=== PATIENT | male | born 1990 | race Caucasian/White ===

== ENCOUNTER 2024-06-10 23:35 | Emergency (ER) | payer OTHER, SELFPAY ==
[2024-06-10 23:37] VITALS: BP 124/89
--- NOTE | 2024-06-10 23:56 | ED.GENMED ---
History of Present Illness
General
Chief Complaint: Weakness
Source: patient
Exam Limitations: none
Time Seen by Provider: 06/10/24 23:44
History of Present Illness
History of Present Illness:
This is a 33 year old male that comes in with c/o vomiting blood. States that he vomited blood last night and then during the day he was fine. Then tonight he started vomiting and he would get sweaty and then cold and then hot. State that the third
time he vomited there was blood. Told that the patient did vomit in Triage and there was not blood. States that he had chills, chest pain, abd sharp pain, nausea, vomiting, diarrhea, mild headache and waves of dizziness. Denies any fever, SOB,
urinary burning.
Past History
Past History
ED Past Medical History: Asthma, Psychiatric (Anxiety, OCD, Autism, Depression, Panic disorder) and Other (Anal fissure, esophageal ulcer, Transverse myelitis 01/2023, Chest pain, Hemorrhoids, Esophageal ulcers. MS, Lyme disease)
ED Past Surgical History: None
Social History
Tobacco: Former smoker
Alcohol: None
Drug: Marijuana
Personal: Single
Living: with family
Family History
Family History: Other (No significant)
Review of Systems
Review of Systems
All Other Systems: ROS reviewed and negative except as documented in HPI and ROS
Constitutional: Reports chills and other (Sweats and then hot and cold); Denies fever
EENT: Reports no symptoms
Respiratory: Reports no symptoms; Denies cough or trouble breathing
Cardiac: Reports chest pain
ABD/GI: Reports abdominal pain (sharp), nausea, vomiting and diarrhea
: Reports no symptoms; Denies dysuria, frequency or urgency
Musculoskeletal: Reports no symptoms
Skin: Reports no symptoms
Neurological: Reports dizzy (Waves) and headache (Mild)
Psychiatric: Reports no symptoms
Phy Exam
General Physical Exam
General Presentation: no apparent distress
General age: appears stated age
General Skin: warm and dry
General Habitus: normal
General Mental: alert
General Hydration: appears well hydrated
ENT Exam
ENT Exam: TM's normal, pharynx normal and neck supple
Eye Exam
Eye Exam: EOMI
Cardiovascular Exam
Cardiovascular Exam: regular rate/rhythm, no edema, no murmur and normal peripheral pulses
Pulmonary Exam
Pulmonary Exam: lungs clear, no respiratory distress, no rales, chest non tender, no crackles, no rhonchi, no wheezing and no cough
Gastrointestinal Exam
Gastrointestinal Exam: normal bowel sounds, soft, no organomegaly, no pulsatile mass, non distended and tender (Epigastric area with palpation)
Musculoskeletal Exam
Musculoskeletal Exam: full ROM and no edema
Skin Exam
Skin Exam: normal color, warm/dry, no rash and no petechia
Psychiatric Exam
Psychiatric Exam: normal mood/affect
Course
Orders/Labs/Results
Orders:
Orders
06/10/24 23:56
Complete Blood Count/With Diff Urgent
Comprehensive Metabolic Panel Urgent
0.9% Sodium Chloride 1000 ml [Nss] 1,000 ml IV BOLUS
Ondansetron Injectable [Zofran] 4 mg IV NOW STA
Pantoprazole [Protonix IV] 40 mg IV NOW STA
06/10/24 23:58
Electrocardiogram (*1) Urgent
Reason for Study: Chest Pain
EKG- Treatment ONCE
Troponin I Urgent
06/11/24 00:52
Sucralfate Suspension [Carafate Suspension] 1 gm PO NOW STA
Abnormal Lab Results
06/11/24
00:11
WBC 17.6 H 10^3/uL
(4.8-10.8)
Abs Immat Gran (auto) 0.3 H 10^3/uL
(0-0.05)
Absolute Neuts (auto) 14.3 H 10^3/uL
(1.4-6.5)
Absolute Monos (auto) 1.4 H 10^3/uL
(0.1-0.6)
Immature Gran % 1.8 H %
(0-0.5)
Neutrophils % 81.2 H %
(42.2-75.2)
Lymphocytes % 7.1 L %
(20.5-51.1)
Glucose 122 H mg/dl
(70-99)
Albumin 5.1 H g/dl
(3.5-5.0)
06/11/24 00:11
06/11/24 00:11
Leukocytosis, Hyperglycemia. Albumin very slightly elevated troponin <0.012
Vital Signs
Initial and Last Documented VS:
Initial Vital Signs
Temp Pulse Resp BP Pulse Ox
99.0 F 83 20 124/89 99
06/10/24 23:37 06/10/24 23:37 06/10/24 23:37 06/10/24 23:37 06/10/24 23:37
Last Documented Vital Signs
Temp Pulse Resp BP Pulse Ox
99.0 F 71 20 110/61 100
06/10/24 23:37 06/11/24 01:15 06/11/24 00:15 06/11/24 01:00 06/11/24 01:15
MDM/Problems Addressed
Differential Diagnosis Includes:
Viral GI syndrome, Bleeding esophageal ulcers
MDM/Problems Addressed:
This is a 33 year old male that comes in with c/o vomiting and the third time there was blood. States that he was sweaty, hot and then cold.
Will check labs, give IV fluids, Protonix and recheck.
back into see patient. Patient has not had any further vomiting. states that he still has some burning in his esophagus. Offered patient admission but he would rather go home with the prescriptions. Patient is taking Protonix 40mg BID. Will add
Carafate QID and will give patient a prescription for Zofran. Patient states that he is scheduled for an endoscopy on the 24 of June. Patient to return with any concerns.
Chronic conditions affecting care:
Esophageal ulcers
Acute Exacerbation and/or Progression of Chronic Illness:
NA
*Pulse Oximetry
Patient hypoxic: no
*EKG
Interpreted by ED Provider?: Yes
Heart Rate: 75
Rate: normal
Rhythm: sinus
[place]: right axis deviation
Interval: normal interval
QRS Pattern: normal QRS
Ischemia: no ischemia
*Associate Counsel Interpretation
Rate: Associate Counsel- N/A
*Critical Care Note
Total Time (30-74mins, 75-104mins- exclusive of procedures): Not Applicable
ED Attending Note
-
Portions of this chart may have been created with voice recognition software.� Occasional wrong word or��sound alike� substitutions may have occurred due to the inherent limitations of voice recognition software.
Discharge Plan
Departure
Patient Disposition: Home (Routine Discharge)
Date of Disposition: 06/11/24
Time of Disposition: 01:44
Patient with high blood pressure during this ER visit?: No
Condition: Good
Covid-19: Not Applicable
Discharge Problem:
Nausea, vomiting and diarrhea
Instructions: Nausea and vomiting in adults, Acute Diarrhea
Prescriptions:
New
sucralfate [Carafate] 1 gram tablet
1 g PO ACHS Qty: 40 0RF
Rx Instructions:
30min-1hour before meals and HS. Dissolve 2tsp water and drink.
ondansetron 4 mg tablet,disintegrating
4 mg PO Q8H PRN (Reason: nausea and vomiting) Qty: 10 0RF
No Action
doxycycline hyclate 100 mg Capsule
100 mg PO BID
ergocalciferol (vitamin D2) 1,250 mcg (50,000 unit) Capsule
1,250 mcg PO MO@0800 Qty: 8 0RF
lorazepam 1 mg Tablet
1 mg PO DAILYPRN PRN (Reason: anxiety) Qty: 7 0RF
ferrous sulfate [FeroSul] 325 mg (65 mg iron) Tablet
325 mg PO HS Qty: 30 0RF
gabapentin 300 mg Capsule
600 mg PO TID Qty: 60 0RF
polyethylene glycol 3350 [HealthyLax] 17 gram Powder In Packet
17 g PO DAILY Qty: 30 0RF
nicotine 14 mg/24 hr Patch 24 Hour
14 mg transdermal DAILY Qty: 28 0RF
famotidine 20 mg Tablet
20 mg PO DAILY Qty: 30 0RF
sennosides [Senna Laxative] 8.6 mg Tablet
8.6 mg PO BID Qty: 30 0RF
Referrals:
UNKNOWN - PT DOES,NOT KNOW [Family Provider] -
Activity Restrictions/Additional Instructions:
As discussed, your blood work shows that your White blood cell count is elevated. This may be due to all the vomiting. Your Hgb is normal at 16.1. Your ECG is normal along with your Troponin. This is most likely the Viral GI syndrome. Please use
your Protonix as directed at home. You have had 2 prescription sent to your Pharmacy. The first is for Zofran that will help with any nausea/vomiting. The second is for Carafate. Please take this 30min to 1 hour before meals and at bedtime. Dissolve
in 2 tsp of water and drink. Follow up with the GI specialist for further evaluation. IF YOU HAVE ANY VOMITING THAT IS NOT CONTROLLED, YOU HAVE INCREASED OR CHANGING PAIN, OR YOU HAVE ANY OTHER CONCERNS PLEASE RETURN TO THE EMERGENCY ROOM.
Interventions
Interventions:
*Risk Screen - Suicide Last Done: 06/10/24 23:37
*General Assessment Last Done: 06/10/24 23:59
*Neglect/Abuse Screening Last Done: 06/10/24 23:59
*ED COVID-19 Vaccine History Last Done: 06/10/24 23:59
ED- Cardiac Assessment Last Done: 06/11/24 00:01
ED- Neurological Assessment Last Done: 06/11/24 00:01
ED- Pulmonary Assessment Last Done: 06/11/24 00:01
Discharge Date and Time
Print Language: TURKISH
[2024-06-10 23:59] VITALS: BMI 19.2
[2024-06-11 00:03] VITALS: BP 126/87
[2024-06-11] MEDS: NSS 1000 IV (00:16)
[2024-06-11] MEDS: ZOFRAN 4 MG IV ×2 (00:18→01:59)
[2024-06-11] MEDS: PROTONIX IV 40 MG IV (00:24)
[2024-06-11 00:31] LABS: % Basophils 0.3 % (0-2); % Eosinophils 1.9 % (0-6); % Immature Granulocytes 1.8 % (0-0.5); % Lymphocytes 7.1 % (20.5-51.1); % Monocytes 7.7 % (1.7-9.3); % Neutrophils 81.2 % (42.2-75.2); Absolute Basophils 0.1 10^3/uL (0-0.2); Absolute Eosinophils 0.3 10^3/uL (0-0.7); Absolute Immature Granulocytes 0.3 10^3/uL (0-0.05); Absolute Lymphocytes 1.3 10^3/uL (1.2-3.4); Absolute Monocytes 1.4 10^3/uL (0.1-0.6); Absolute Neutrophils 14.3 10^3/uL (1.4-6.5); Hematocrit 46.9 % (39.0-52.0); Hemoglobin 16.1 g/dL (13.0-18.0); Mean Corp Hgb Conc. 34.3 g/dL (33.0-37.0); Mean Corpuscular Hgb 29.2 pg (27.0-31.0); Mean Corpuscular Volume 85.1 fL (80.0-94.0); Mean Platelet Volume 10.3 fL (7.4-10.4); Nucleated Red Blood Cells % 0.2 % (-); Platelet Count 208 10^3/uL (130-400); Red Blood Cell Count 5.51 10^6/uL (4.70-6.10); Red Cell Dist. Width 14.5 % (11.5-14.5); White Blood Cell Count 17.6 10^3/uL (4.8-10.8)
[2024-06-11 00:35] LABS: ALT (SGPT) 21 U/L (0-50); AST (SGOT) 25 U/L (17-59); Albumin 5.1 g/dl (3.5-5.0); Alkaline Phosphatase 76 U/L (38-126); Blood Urea Nitrogen 17 mg/dl (9-20); Calcium 9.7 mg/dl (8.4-10.2); Carbon Dioxide 26 mmol/L (22-30); Chloride 103 mmol/L (98-107); Estimated Creatinine Clearance > 125 ml/min; Glucose 122 mg/dl (70-99); Potassium 4.3 mmol/L (3.5-5.1); Sodium 144 mmol/L (135-145); Total Bilirubin 0.9 mg/dl (0.2-1.3); Total Protein 7.4 g/dl (6.3-8.2); eGFR > 60.00
[2024-06-11 00:47] LABS: Troponin I < 0.012 ng/ml
[2024-06-11] MEDS: CARAFATE SUSPENSION 1 GM PO (00:55)
[2024-06-11 01:00] VITALS: BP 110/61
[2024-06-11 02:00] VITALS: BP 110/65
== END 2024-06-11 02:18 | disposition home or self-care (01) ==
LOC: EMR 23:35
PROVIDERS: Clinical Nurse Specialist Family Health; EMERGENCY PHYSICIAN Student in an Organized Health Care Education/Training Program
DX: R11.2 Nausea with vomiting, unspecified (principal); R19.7 Diarrhea, unspecified; K22.10 Ulcer of esophagus without bleeding; F84.0 Autistic disorder; J45.909 Unspecified asthma, uncomplicated; Z87.891 Personal history of nicotine dependence; Z87.19 Personal history of other diseases of the digestive system
CPT/HCPCS: 96374; 96375; 96376; 96361; 99284; 80053; 84484; 85025; 93005